=== PATIENT | male | born 1990 | race Two or more races ===

== ENCOUNTER 2025-04-12 12:42 | Emergency (ER) | payer MEDICAID, OTHER ==
[~2025-04-12] VITALS: Ht 175.3 cm; Wt 80.3 kg
[2025-04-12 12:44] VITALS: BP 128/88
== END 2025-04-12 14:34 | disposition left against medical advice (07) ==
LOC: ER 12:42
DX: H92.02 Otalgia, left ear (principal); Z53.21 Procedure and treatment not carried out due to patient leaving prior to being seen by health care provider